=== PATIENT | male | born 1965 | race Caucasian/White ===

== ENCOUNTER 2017-10-14 06:31 | Day surgery (SDC) | payer OTHER ==
[~2017-10-14] VITALS: Ht 185.4 cm; Wt 113.6 kg
[~2017-10-14 06:31] MED LIST: IOHEXOL 350 MG/ML 10 ML VIAL (for RAD DIAG) IVCONTRAST ONE
[2017-10-14] MEDS ORDERED: ZOFR8TAB PO (06:54)
[2017-10-14] MEDS ORDERED: CHLORHEXIDINE GLUCONATE 2 % 1 PACK (2 CLOTHS) TOPICAL SCH (07:00)
[2017-10-14] MEDS ORDERED: POVIDONE IODINE 5% (ANTISEPSIS KIT) 4 APPLICATIONS EACH NARE SCH (07:00)
[2017-10-14] MEDS ORDERED: ceFAZolin 2 GM PREMIX 50 ML - implanted port/tunneled catheter insertion IV SCH (07:00)
[2017-10-14] MEDS ORDERED: VANCOMYCIN 1 GM/200 ML PREMIX ON-CALL IV SCH (07:00)
[2017-10-14 07:08] VITALS: BP 136/95; PULSE 81; RESP 20; TEMP 99.1; O2SAT 98
[2017-10-14 07:28] LABS: AUTOMATED NEUTROPHIL # 11.9 TH/MM3 (1.8-7.7); BASOPHIL # 0.2 TH/MM3 (0-0.2); BASOPHIL % 0.9 % (0.0-2.0); EOSINOPHIL # 0.4 TH/MM3 (0-0.4); EOSINOPHIL % 2.6 % (0.0-4.0); HEMATOCRIT 44.5 % (39.0-51.0); HEMOGLOBIN 15.4 GM/DL (13.0-17.0); LYMPH % 12.9 % (9.0-44.0); LYMPHOCYTE # 2.2 TH/MM3 (1.0-4.8); MEAN CELL VOLUME 88.1 FL (80.0-100.0); MEAN CORPUSCULAR HEMOGLOBIN 30.5 PG (27.0-34.0); MEAN CORPUSCULAR HGB CONC 34.6 % (32.0-36.0); MEAN PLATELET VOLUME 8.8 FL (7.0-11.0); MONO % 12.2 % (0.0-8.0); NEUT % 71.4 % (16.0-70.0); PLATELET COUNT 282 TH/MM3 (150-450); RED BLOOD COUNT 5.05 MIL/MM3 (4.50-5.90); RED CELL DISTRIBUTION WIDTH 12.9 % (11.6-17.2); WHITE BLOOD COUNT 16.7 TH/MM3 (4.0-11.0)
[2017-10-14 07:35] LABS: INTERNATIONAL NORMALIZED RATIO 1.1 RATIO; PROTHROMBIN TIME - PATIENT 10.8 SEC (9.8-11.6)
[2017-10-14 08:17] LABS: BANDS 11 % (0-6); LYMPHOCYTES 14 % (9-44); MONOCYTES 12 % (0-8); NEUTROPHIL # MANUAL DIFF 12.2 TH/MM3 (1.8-7.7); POLYS (SEG NEUTROPHILS) 62 % (16-70)
[2017-10-14] MEDS ORDERED: MIDAZOLAM HCL 5 MG/5 ML VIAL ONE (08:45)
[2017-10-14] MEDS ORDERED: fentaNYL CITRATE 250 MCG/5 ML AMP ONE (08:46)
[2017-10-14] MEDS ORDERED: LIDOCAINE 1%/EPINEPHrine 1:100,000 SOLN 20 ML VIAL ONE (09:14)
[2017-10-14 09:45] VITALS: BP 148/76; PULSE 85; RESP 18; TEMP 98.3; O2SAT 94
[2017-10-14 10:00] VITALS: BP 125/73; PULSE 81; RESP 18; O2SAT 93
--- NOTE | 2017-10-14 10:01 | PD.RAD ---
Post Procedure Progress Note Procedure Date: October 14, 2017 Supervising Radiologist: Ajay Gaxiola Proceduralist/Assist: RT Grace(R), Other Anesthesia: Conscious Sedation Plan of Activity Patient to Unit: [facility] Patient Condition: Good See PACS Report for procedural detail/treatment Ajay Gaxiola MD October 14, 2017 10:01
[2017-10-14 10:30] VITALS: BP 137/78; PULSE 76; RESP 18; O2SAT 93
[2017-10-14 11:00] VITALS: BP 127/75; PULSE 76; RESP 16; O2SAT 92
--- NOTE | 2017-10-14 11:06 | RADRPT ---
EXAM DATE: 10/14/2017 10:58 AM EDT AGE/SEX: 52 years / Male INDICATIONS: Patient with a history of tonsil squamous cell cancer. CLINICAL DATA: This is the patient's initial encounter. Patient reports that signs and symptoms have been present for 2 weeks and indicates a pain score of 0/10. MEDICAL/SURGICAL HISTORY: . Tonsil cancerRight neck massInguinal herniaKidney stones . Left sh oulder decompressionTonsil and neck biopsyLeft knee arthroscopyInguinal hernia COMPARISON: No prior [facility] exams available for comparison. FLUORO TIME (min): 0.41 IMAGE SERIES: SEDATION TIME (min): 30 MEDICATION(S): 2 mg midazolam (Versed) IV 100mcg fentanyl (Sublimaze) IV Prophylactic antibiotics were administered with appropriate pre-procedure timing. DEVICE(S): Right 8Fr power port . . PROCEDURE : 1. Continuous pulse oximetry and EKG monitoring. 2. Intravenous conscious sedation. 3. Ultrasound guidance for venous access. 4. Fluoroscopic guided implantable central venous port placement. The patient was placed supine. The neck was prepped in sterile fashion. Full sterile technique was u sed, including cap, mask, sterile gloves and gown, and a large sterile sheet. Hand hygiene and 2% ch lorhexidine Betadine was utilized per protocol for cutaneous antisepsis with appropriate dry time for site. Sterile gel and sterile probe cover were utilized for ultrasound guidance. The skin and sub cutaneous tissues were infiltrated with local anesthetic solution. Under direct ultrasound guidance, central venous access was accomplished in the targeted vessel. The ultrasound images depicting access guidance were stored and saved to PACS for permanent record. A s ubcutaneous pocket was created using blunt dissection. The port was introduced to the pocket. The c atheter tubing was fed through a subcutaneous tunnel to the venotomy site. The catheter tubing was c ut to a suitable length and then was introduced through a valved Peel-Away sheath and positioned with catheter tubing tip at the cavo-atrial junction level. The pocket incision was closed with subcutic ular Vicryl suture. Steri-Strips were applied. The port was flushed and locked with heparin solutio n per protocol. Sterile dressing was applied to the site. The patient tolerated the procedure well. Conscious sedation was performed with the prescribed dosages and duration as above in the presence of an independent trained radiology nurse to assist in the monitoring of the patient. EKG and oximetry remained stable throughout the procedure. The patient tolerated the procedure well and there were no complications. The patient was sent to post anesthesia recovery in stable condition. CONCLUSION: 1. Uncomplicated ultrasound and fluoroscopic guided implanted central venous port catheter placement as described in detail above. An 8 [place] Power port was placed. Electronically signed by: Ajay Gaxiola MD 10/14/2017 11:05 AM EDT
== END 2017-10-14 11:40 | disposition home or self-care (01) ==
LOC: HROP 06:31 → HRIP 06:36 → HROP 11:40
PROVIDERS: ATTEND Internal Medicine Hematology & Oncology
DX: C09.0 Malignant neoplasm of tonsillar fossa (principal); Z01.818 Encounter for other preprocedural examination
CPT/HCPCS: 36561; 76937; 77001; 85007; 85027; 85610; 85730; 99152; 99153; C1788; J0690; J1642; J2250; J3010; J3370